=== PATIENT | male | born 1985 | race African-American/Black ===

== ENCOUNTER 2017-10-16 19:33 | Inpatient (IN) | payer OTHER ==
[~2017-10-16] VITALS: Ht 177.8 cm; Wt 80.6 kg
[2017-10-16 23:05] LABS: HEMATOCRIT 39.8 % (38.0-50.0); HEMOGLOBIN 13.3 G/DL (12.5-16.6); MCH 27.5 PG (29.0-34.0); MCHC 33.4 G/DL (30.0-36.0); MCV 82.4 FL (86-99); PLATELET COUNT 210 K/uL (156-360); RBC DIS.WIDTH-CV 12.6 % (11.8-14.6); RED BLOOD COUNT 4.83 M/uL (4.00-5.50); WHITE BLOOD COUNT 12.8 K/uL (4.1-10.2)
[2017-10-16 23:11] LABS: INTER. NORMALIZED RATIO 1.2
[2017-10-16 23:13] LABS: CHLORIDE 107 mEq/L (99-109); POTASSIUM 3.8 mEq/L (3.7-5.4); SODIUM 142 mEq/L (136-147)
[2017-10-16 23:15] LABS: GLUCOSE 107 mg/dL (70-99)
[2017-10-16 23:19] LABS: CREATININE 1.3 mg/dL (0.6-1.3); GFR ESTIMATE (CALCULATED) > 59 mL/min/ (58.99-99999)
[2017-10-16 23:20] LABS: UREA NITROGEN (BUN) 11 mg/dL (9-23)
[2017-10-17] VITALS (15 sets, daily range): BP systolic 102–142; BP diastolic 50–84
[2017-10-18 00:34] VITALS: BP 107/50
[2017-10-18 04:49] VITALS: BP 110/52
[2017-10-18 08:05] VITALS: BP 110/58
[2017-10-18 11:20] VITALS: BP 101/54
[2017-10-18] MEDS ORDERED: ZOFRAN4 MG PO (12:35)
[2017-10-18] MEDS ORDERED: TYLENOL WITH C1 EACH PO (12:35)
== END 2017-10-18 13:38 | DRG 84 ==
LOC: EME 19:33 → EDOF 23:59 → 4WEST 23:59 → ENRESERV 10-17 → 4WEST 10-17 01:27 → CANRESERV 10-17 10:06 → ENRESERV 10-17 10:06 → 4WEST 10-17 10:27 → ENRESERV 10-17 16:50 → 4EAST 10-17 17:24 → ENPENDDIS 10-18 → 4EAST 10-18 13:38
PROVIDERS: Emergency Medicine
DX: S06.5X9A Traumatic subdural hemorrhage with loss of consciousness of unspecified duration, initial encounter (principal); M25.511 Pain in right shoulder; S06.6X9A Traumatic subarachnoid hemorrhage with loss of consciousness of unspecified duration, initial encounter; S06.2X9A Diffuse traumatic brain injury with loss of consciousness of unspecified duration, initial encounter; X58.XXXA Exposure to other specified factors, initial encounter; Z87.891 Personal history of nicotine dependence; Y09 Assault by unspecified means
CPT/HCPCS: 70450; 73030; 80048; 85027; 85610; 87641; 99281; 99285; J1953; J7030; J7050; S0028